=== PATIENT | male | born 1970 | race American Indian/Alaskan Native ===

== ENCOUNTER 2021-02-22 17:51 | Emergency (ER) | payer MEDICARE ==
[2021-02-22 21:37] LABS: Basophils # (Auto) 0.1 K/mm3 (0.0-0.1); Eosinophils # (Auto) 0.2 K/mm3 (0.0-0.4); Eosinophils % (Auto) 3.6 % (0.0-4.3); Hematocrit 38.1 % (35.5-45.6); Hemoglobin 12.8 gm/dl (11.8-15.2); Lymphocytes # (Auto) 1.3 K/mm3 (1.2-5.4); Lymphocytes % (Auto) 21.9 % (13.4-35.0); Mean Corpuscular HGB Conc 34 % (32-34); Mean Corpuscular Volume 89 fl (84-94); Monocytes # (Auto) 0.6 K/mm3 (0.0-0.8); Monocytes % (Auto) 10.6 % (0.0-7.3); Platelet Count 143 K/mm3 (140-440); Red Blood Count 4.29 M/mm3 (3.65-5.03); Red Cell Distribution Width 15.7 % (13.2-15.2)
[2021-02-22 21:57] LABS: Albumin 4.4 g/dL (3.9-5); Calcium 8.4 mg/dL (8.4-10.2)
--- NOTE | 2021-02-23 00:46 | Emergency Department Report ---
ED General Adult HPI - General Chief complaint: Recheck/Abnormal Lab/Rx Stated complaint: DOCTOR TOLD TO COME PUI?: No Time Seen by Provider: 02/23/21 00:35 Source: patient Mode of arrival: Ambulatory Limitations: No Limitations - History of Present Illness Initial comments: Patient is a 48-year-old male who presents emergency room for abnormal labs. Patient states that his dialysis center sent him here. Patient states he is very here from [place] and he has a temporary dialysis center set up here. Patient states that his dialysis center in [place] sent a copy of his labs that showed some abnormalities from 2-3 weeks ago. Patient states that his dialysis center here in [place] sent him to be evaluated because his potassium was up. Patient states potassium was 7.1 and he had dialysis and it came down. Patient denies pain. Patient denies chest pain. Patient denies myalgias. Patient denies shortness of breath. Patient states he has not missed any dialysis. Patient states he is on schedule even though he is visiting here. Patient denies recent travel. Patient denies recent international travel. Patient denies exposure to the novel coronavirus. Patient denies sick contacts. Patient denies fever and chills. Patient denies cough. Patient denies diarrhea. Patient denies coming in contact with anybody with symptoms of the novel coronavirus. -: Sudden Severity scale (0 -10): 0 Consistency: constant Improves with: none Worsens with: none Associated Symptoms: denies other symptoms - Related Data Allergies Allergy/AdvReac Type Severity Reaction Status Date / Time No Known Allergies Allergy Unverified 02/22/21 20:59 ED Review of Systems ROS: Stated complaint: DOCTOR TOLD TO COME Other details as noted in HPI Constitutional: denies: chills, fever Eyes: denies: eye pain, eye discharge, vision change ENT: denies: ear pain, throat pain Respiratory: denies: cough, shortness of breath, wheezing Cardiovascular: denies: chest pain, palpitations Endocrine: no symptoms reported Gastrointestinal: denies: abdominal pain, nausea, diarrhea Genitourinary: denies: urgency, dysuria Musculoskeletal: denies: back pain, joint swelling, arthralgia Skin: denies: rash, lesions Neurological: denies: headache, weakness, paresthesias Psychiatric: denies: anxiety, depression Hematological/Lymphatic: denies: easy bleeding, easy bruising ED Past Medical Hx - Past Medical History Previous Medical History?: Yes Hx Hypertension: Yes Hx Diabetes: Yes Hx Renal Disease: Yes - Surgical History Past Surgical History?: Yes Additional Surgical History: left upper arm AV fistula - Family History Family history: no significant - Social History Smoking Status: Never Smoker Substance Use Type: None ED Physical Exam - General Limitations: No Limitations General appearance: alert, in no apparent distress - Head Head exam: Present: atraumatic, normocephalic - Eye Eye exam: Present: normal appearance - ENT ENT exam: Present: mucous membranes moist - Neck Neck exam: Present: normal inspection - Respiratory Respiratory exam: Present: normal lung sounds bilaterally. Absent: respiratory distress - Cardiovascular Cardiovascular Exam: Present: regular rate, normal rhythm. Absent: systolic murmur, diastolic murmur, rubs, gallop - GI/Abdominal GI/Abdominal exam: Present: soft, normal bowel sounds - Rectal Rectal exam: Present: deferred - Extremities Exam Extremities exam: Present: normal inspection - Back Exam Back exam: Present: normal inspection - Neurological Exam Neurological exam: Present: alert, oriented X3 - Psychiatric Psychiatric exam: Present: normal affect, normal mood - Skin Skin exam: Present: warm, dry, intact, normal color. Absent: rash ED Course Vital Signs 02/22/21 20:48 Temperature 98.9 F Pulse Rate 65 Respiratory 16 Rate Blood Pressure 194/97 O2 Sat by Pulse 98 Oximetry - Reevaluation(s) Reevaluation #1: I discussed all results and clinical findings with patient. I discussed plan of care with patient. Patient agrees with plan of care. Patient is stable for discharge. Patient will be discharged home. Patient given discharge instructions. Patient voiced understanding of discharge instructions. 02/23/21 00:46 ED Medical Decision Making - Lab Data Result diagrams: 02/22/21 21:07 02/22/21 21:07 - Medical Decision Making Patient is a 50-year-old male presents emergency room for a potassium recheck. Patient states his dialysis center checked potassium few weeks back and was elevated patient states he then had adjustment to his dialysis and his dialysis has fix his potassium level. Patient states his potassium has been checked a few times since he needs has been normal. Patient states that his dialysis center at [place] [facility] for an abnormal result in his dialysis center here sent him here to be evaluated just in case. Patient had labs done essentially unremarkable and consistent with end-stage renal disease. Patient's potassium is normal. Patient is having dialysis even though he is on vacation here. Patient states he has not missed any dialysis over the past 6 months. Patient is stable for discharge. Patient discharged home. . - Differential Diagnosis Lab error, hyperkalemia, end-stage renal disease, Critical care attestation.: If time is entered above; I have spent that time in minutes in the direct care of this critically ill patient, excluding procedure time. ED Disposition Clinical Impression: Hyperkalemia, End stage renal disease Disposition: - TO HOME OR SELFCARE Is pt being admited?: No Does the pt Need Aspirin: No Condition: Stable Instructions: Hyperkalemia, [id number], Dialysis Additional Instructions: Patient to follow-up with primary care in 2 to 3 days. Patient to continue with dialysis schedule. 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 Patient to rest. Patient to return to the ER if condition worsens, changes or new symptoms arise. Time of Disposition: 00:49
[2021-02-23 00:55] VITALS: BP 179/76
== END 2021-02-23 02:00 | disposition home or self-care (01) ==
LOC: ED 17:51
DX: E11.22 Type 2 diabetes mellitus with diabetic chronic kidney disease (principal); I12.0 Hypertensive chronic kidney disease with stage 5 chronic kidney disease or end stage renal disease; N18.6 End stage renal disease; E87.5 Hyperkalemia; Z98.890 Other specified postprocedural states
CPT/HCPCS: 36415; 80053; 85025